=== PATIENT | male | born 1950 | race Caucasian/White ===

== ENCOUNTER → 2017-05-30 | Outpatient (CLI) | payer MEDICARE, OTHER ==
--- NOTE | 2017-05-30 10:34 | CARD ---
APPROVED REPORT EXAM: Two-dimensional and M-mode echocardiogram with Doppler and color Doppler. Other Information Quality : Good INDICATION Abnormal ECG A FIB 2D DIMENSIONS Left Atrium(2D)4.7 (1.6-4.0cm)IVSd1.3 (0.7-1.1cm) Aortic Root(2D)3.5 (2.0-3.7cm)LVDd5.1 (3.9-5.9cm) LVOT Diameter2.2 (1.8-2.4cm)PWd1.2 (0.7-1.1cm) IVSs1.6 (0.8-1.2cm)LVDs3.7 (2.5-4.0cm) FS (%) 27.1 %PWs1.6 (0.8-1.2cm) SV65.8 mlLVEF(%)52.4 (>50%) Aortic Valve AoV Peak Galo.149.6cm/sAoV VTI27.9cm AO Peak GR.9.0mmHgLVOT Peak Galo.82.5cm/s LVOT VTI 17.36cmAO Mean GR.5mmHg DEVIN (VMAX)2.43fg9JHV (VTI)2.26cm2 Mitral Valve MV E Skzidjri14.9cm/sMV DECEL ZRJY606mw MV A Fylewvnk68.6cm/sMV WLX68jg E/A Ratio0.6MVA (PHT)3.00cm2 TDI E/Lateral E'7.2E/Medial E'7.5 Tricuspid Valve RAP ENBNCYHP5ofHcXR Peak Gr.16mmHg FELD93hqCg Pulmonary Vein S1 Cctlifis42.7cm/sD2 Ziwftakx68.5cm/s LEFT VENTRICLE The left ventricle is normal size. There is borderline to mild concentric left ventricular hypertroph y. Left ventricle systolic function is normal. The Ejection Fraction is 55-60%. There is normal LV se gmental wall motion. Transmitral Doppler flow pattern is Grade I-abnormal relaxation pattern. RIGHT VENTRICLE The right ventricle is normal size. The right ventricular systolic function is normal. ATRIA The left atrium is mild to moderately dilated. The right atrium size is normal. The interatrial septu m is intact with no evidence for an atrial septal defect or patent foramen ovale as noted on 2-D or D oppler imaging. AORTIC VALVE The aortic valve is calcified but opens well. Doppler and Color Flow revealed mild to moderate aortic regurgitation. There is no significant aortic valvular stenosis. MITRAL VALVE The mitral valve is mildly thickened. There is no evidence of mitral valve prolapse. There is no mitr al valve stenosis. Doppler and Color-flow revealed trace mitral regurgitation. TRICUSPID VALVE The tricuspid valve is normal in structure and function. Doppler and Color Flow revealed trace to mil d tricuspid regurgitation. There is no pulmonary hypertension. The PA pressure was estimated at 19 mm Hg. There is no tricuspid valve stenosis. PULMONIC VALVE The pulmonary valve is normal in structure and function. Doppler and Color Flow revealed mild pulmoni c valvular regurgitation. There is no pulmonic valvular stenosis. GREAT VESSELS The aortic root is normal in size. The ascending aorta is normal in size. The IVC is normal in size a nd collapses >50% with inspiration. PERICARDIAL EFFUSION There is no pleural effusion. There is no evidence of significant pericardial effusion. Critical Notification Critical Value: No <Conclusion> Left ventricle systolic function is normal. The Ejection Fraction is 55-60%. There is normal LV segmental wall motion. Doppler and Color Flow revealed moderate aortic regurgitation.
== END | disposition home or self-care (01) ==
LOC: ECHO 08:29
PROVIDERS: ATTEND Internal Medicine Cardiovascular Disease
DX: I48.91 Unspecified atrial fibrillation (principal); I35.1 Nonrheumatic aortic (valve) insufficiency; I37.1 Nonrheumatic pulmonary valve insufficiency; R94.31 Abnormal electrocardiogram [ECG] [EKG]
CPT/HCPCS: 93306

== ENCOUNTER → 2017-07-23 | Outpatient (CLI) | payer MEDICARE, OTHER ==
--- NOTE | 2017-07-23 13:54 | KCIC ---
KNEE RIGHT 3V Clinical Indication: Right anterior knee pain. Locks up on and off x2 years. Surgery 1980. Comparison: None. Findings: No acute fracture. There is severe medial compartment narrowing. There is lateral meniscus chondrocalcinosis. There is surgical hardware of ACL repair. Tricompartmental marginal osteophytes. There is no significant joint effusion. Patella in anatomic position. There may be mild infrapatellar soft tissue swelling. Arterial calcifications. IMPRESSION: 1. Severe medial compartment degenerative arthropathy. 2. Lateral meniscus chondrocalcinosis. 3. Prior ACL repair. Electronically signed by: Jovanny Proctor MD (07/23/2017 1:50 PM) [id number]
== END | disposition home or self-care (01) ==
LOC: KCIC 11:00
PROVIDERS: ATTEND Family Medicine
DX: M11.261 Other chondrocalcinosis, right knee (principal); M12.861 Other specific arthropathies, not elsewhere classified, right knee
CPT/HCPCS: 73562

== ENCOUNTER → 2018-01-28 | Outpatient (CLI) | payer MEDICARE, OTHER ==
[~2018-01-28] MED LIST: LIDOCAINE 2%/EPI 1:100,000 20 ML VIAL.
[2018-01-28] MEDS: LIDOCAINE 2%/EPI 1:100,000 20 ML VIAL. IJ (11:11)
== END | disposition home or self-care (01) ==
LOC: CCL 06:17
DX: Z45.09 Encounter for adjustment and management of other cardiac device (principal); Z88.5 Allergy status to narcotic agent; I42.9 Cardiomyopathy, unspecified; I10 Essential (primary) hypertension; K21.9 Gastro-esophageal reflux disease without esophagitis; N40.0 Benign prostatic hyperplasia without lower urinary tract symptoms; Z98.1 Arthrodesis status; Z98.890 Other specified postprocedural states
CPT/HCPCS: 33284; J3490

== ENCOUNTER → 2018-11-10 | Outpatient (CLI) | payer MEDICARE, OTHER ==
[2018-01-28 07:36] VITALS: BP 128/83
[~2018-11-10] MED LIST changes: +AMLO5TAB10 PO; +ASPI81TA50 PO; +CELE200C PO; +CHOL2000 PO; +ESOM20CA PO; +GLUC1TAB44 PO; -LIDOCAINE 2%/EPI 1:100,000 20 ML VIAL.; +MELO15TA23 PO; +NAPR1TAB25 PO; +TADA5TAB PO; +TRAM50TA PO
--- NOTE | 2018-11-10 17:10 | KCIC ---
MR of the right knee HISTORY: Right knee pain anteriorly, pain for over 30 years. Worsening pain for the last 6 months. History of prior surgery. TECHNIQUE: Routine multiplanar sequences are obtained. FINDINGS: The medial meniscus is very small and blunted particularly at the posterior horn, compatible with a tear unless the patient has had prior meniscectomy. The lateral meniscus anterior horn is irregular with some increased signal, but no definite lateral meniscal tear. Anterior cruciate ligament has been reconstructed and appears intact. Posterior cruciate ligament is intact. Medial collateral ligament demonstrates proximal thickening or scarring without acute tear. Iliotibial band unremarkable. Fibular collateral ligament, biceps femoris tendon and popliteus tendon are intact. Extensor mechanism is intact. Small joint effusion. No evidence of osteochondral loose body. Tricompartmental primary osteoarthritis. Severe cartilage loss at the weightbearing medial joint compartment. Moderate chondromalacia at the lateral joint. Subchondral osteophyte at the weightbearing lateral femoral condyle. Severe patellofemoral joint degenerative change with severe chondral loss particularly at the femoral trochlea. No acute fracture. No aggressive bone destruction. Postsurgical artifact at the distal femur. Mild subcutaneous edema along the lateral knee. IMPRESSION: 1. Severe primary osteoarthritis. 2. Abnormal medial meniscus compatible with a tear, although prior meniscectomy could contribute to this appearance. Electronically signed by: Joseph Healy MD (11/10/2018 5:07 PM) [facility]
== END | disposition home or self-care (01) ==
LOC: KCIC MRI 16:02
PROVIDERS: ATTEND Orthopaedic Surgery Sports Medicine
DX: M17.11 Unilateral primary osteoarthritis, right knee (principal); M94.261 Chondromalacia, right knee
CPT/HCPCS: 73721

== ENCOUNTER → 2018-12-09 | Outpatient (CLI) | payer MEDICARE, OTHER ==
[2018-01-28 07:36] VITALS: BP 128/83
--- NOTE | 2018-12-09 14:23 | RAD ---
Examination: MRI of the right knee using Castillo & Nephew protocol HISTORY: History of osteoarthritis right knee COMPARISON: 11/10/2018 TECHNIQUE: MR imaging of the right knee was performed using Castillo & Nephew protocol. FINDINGS: Limited examination as this was performed per Castillo & Nephew protocol. Reconstructed anterior cruciate ligament appears intact. The posterior cruciate ligament appears intact. There is attenuated appearance of the body and posterior horn of the medial meniscus could be a tear or prior surgery similar to prior exam. Small knee joint effusion. Severe joint space loss identified in the medial, lateral, patellofemoral compartments. Impression: 1. Severe tricompartmental degenerative changes knee joint. Electronically signed by: Ayo Murguia MD (12/09/2018 2:20 PM) [facility]
--- NOTE | 2018-12-10 08:34 | RAD ---
Right lower extremity bone length study, 12/09/2018: HISTORY: Right knee osteoarthritis, surgical planning AP views of the right femur and lower leg were obtained with markers placed on the skin surface laterally to facilitate preoperative bone length measurements. There is moderate to severe degenerative change at the right knee joint with chondrocalcinosis. A surgical screw and macrina are present in the distal femur laterally. There is mild degenerative change at the right ankle. This limited exam is otherwise unremarkable. Electronically signed by: Gareth Bishop MD (12/10/2018 8:30 AM) [facility]
== END | disposition home or self-care (01) ==
LOC: RAD 13:04
PROVIDERS: ATTEND Orthopaedic Surgery Sports Medicine
DX: M17.11 Unilateral primary osteoarthritis, right knee (principal); M11.261 Other chondrocalcinosis, right knee
CPT/HCPCS: 73721; 77073

== ENCOUNTER → 2019-01-06 | Outpatient (CLI) | payer MEDICARE, OTHER ==
[2018-01-28 07:36] VITALS: BP 128/83
[2019-01-06 09:24] LABS: BASO % 0 % (0-3); EOS # 0.1 x10^3/uL (0.0-0.7); EOS % 2 % (0-3); HEMATOCRIT 43.1 % (39.0-53.0); LYMPH # 0.7 x10^3/uL (1.0-4.8); LYMPH % 15 % (24-48); MEAN CORPUSCULAR HEMOGLOBIN 33 pg (25-35); MEAN CORPUSCULAR HGB CONC 35 g/dL (31-37); MEAN CORPUSCULAR VOLUME 95 fL (79-100); MONO # 0.4 x10^3/uL (0.0-1.1); MONO % 8 % (0-9); NEUT # 3.7 x10^3uL (1.8-7.7); NEUT % 74 % (31-73); PLATELET COUNT 136 x10^3/uL (140-400); RED BLOOD COUNT 4.53 x10^6/uL (4.30-5.70); RED CELL DISTRIBUTION WIDTH 13.3 % (11.5-14.5)
[2019-01-06 09:32] LABS: BILIRUBIN,URINE NEGATIVE (NEG); CLARITY,URINE CLEAR; COLOR,URINE YELLOW; NITRITE,URINE NEGATIVE (NEG); PROTEIN,URINE NEGATIVE (NEG-TRACE); UROBILINOGEN,URINE 0.2 mg/dL (0.2 mg/dL)
[2019-01-06 09:40] LABS: PROTHROMBIN TIME PATIENT 12.6 SEC (11.7-14.0)
[2019-01-06 09:41] LABS: CALCIUM 9.2 mg/dL (8.5-10.1); GFR 74.8; POTASSIUM 4.1 mmol/L (3.5-5.1)
[2019-01-06 09:45] LABS: BACTERIA,URINE 0 /HPF (0-FEW); RBC,URINE 0 /HPF (0-2); WBC,URINE OCC /HPF (0-4)
--- NOTE | 2019-01-06 13:00 | EKG ---
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
--- NOTE | 2019-01-06 16:52 | RAD ---
Chest, 2 views, 01/06/2019: HISTORY: Preop evaluation for knee surgery The heart size and pulmonary vascularity are normal. There is tortuosity of the thoracic aorta. No pulmonary infiltrate is seen. There is no evidence of pleural fluid. Surgical implants are noted in the lower cervical spine. IMPRESSION: No acute cardiopulmonary abnormality is detected. Electronically signed by: Gareth Bishop MD (01/06/2019 4:49 PM) [facility]
== END | disposition home or self-care (01) ==
LOC: SURGPAT 13:12
PROVIDERS: ATTEND Orthopaedic Surgery Sports Medicine
DX: Z01.818 Encounter for other preprocedural examination (principal); M17.11 Unilateral primary osteoarthritis, right knee; I48.91 Unspecified atrial fibrillation
CPT/HCPCS: 36415; 71046; 80048; 81001; 82040; 82306; 85025; 85610; 85651; 85730; 87641; 93005

== ENCOUNTER → 2019-01-13 | Outpatient (CLI) | payer MEDICARE, OTHER ==
[2018-01-28 07:36] VITALS: BP 128/83
--- NOTE | 2019-01-13 11:09 | CARD ---
MR#: [id number] Date of Study: 01/13/2019 Ordering Physician: BAR NATH, Referring Physician: BAR NATH Tech: Cece Martinez RDCS APPROVED REPORT EXAM: Two-dimensional and M-mode echocardiogram with Doppler and color Doppler. Other Information Quality : AverageHR: 66bpm Rhythm : NSR INDICATION Atrial Fibrillation 2D DIMENSIONS RVDd3.8 (2.9-3.5cm)Left Atrium(2D)4.3 (1.6-4.0cm) IVSd1.5 (0.7-1.1cm)Aortic Root(2D)3.5 (2.0-3.7cm) LVDd4.4 (3.9-5.9cm)LVOT Diameter2.4 (1.8-2.4cm) PWd1.1 (0.7-1.1cm)LVDs2.8 (2.5-4.0cm) FS (%) 35.9 %SV57.5 ml LVEF(%)65.6 (>50%) M-Mode DIMENSIONS Left Atrium(MM)4.50 (2.5-4.0cm)Aortic Root3.36 (2.2-3.7cm) Aortic Valve AoV Peak Galo.132.6cm/sAoV VTI25.8cm AO Peak GR.7.0mmHgLVOT Peak Galo.74.8cm/s AO Mean GR.3mmHgAVA (VMAX)2.56cm2 DEVIN (VTI)2.68hv5RC P 1/2 Gnmn273mb Mitral Valve MV E Hqzlbiew34.6cm/sMV DECEL ODYY685nr MV A Vcvtkvir97.4cm/sE/A Ratio0.6 Pulmonary Valve PV Peak Eyhfbikw479.8cm/s LEFT VENTRICLE The left ventricle is normal size. There is mild concentric left ventricular hypertrophy. The left ve ntricular systolic function is normal and the ejection fraction is within normal range. The Ejection Fraction is 60-65%. There is normal LV segmental wall motion. Transmitral Doppler flow pattern is Gra de I-abnormal relaxation pattern. RIGHT VENTRICLE The right ventricle is normal size. There is normal right ventricular wall thickness. The right ventr icular systolic function is normal. ATRIA The left atrium is mildly dilated. The right atrium size is normal. The interatrial septum is intact with no evidence for an atrial septal defect or patent foramen ovale as noted on 2-D or Doppler imagi ng. AORTIC VALVE The aortic valve is normal in structure and function. The aortic valve is trileaflet. Doppler and Col or Flow revealed mild aortic regurgitation. There is no significant aortic valvular stenosis. There i s no aortic valvular vegetation. MITRAL VALVE The mitral valve is normal in structure and function. There is no evidence of mitral valve prolapse. There is no mitral valve stenosis. Doppler and Color-flow revealed mild mitral regurgitation. TRICUSPID VALVE The tricuspid valve is normal in structure and function. Doppler and Color Flow revealed no tricuspid valve regurgitation noted. There is no tricuspid valve prolapse or vegetation. There is no tricuspid valve stenosis. PULMONIC VALVE The pulmonary valve is normal in structure and function. Doppler and Color Flow revealed mild pulmoni c valvular regurgitation. There is no pulmonic valvular stenosis. GREAT VESSELS The aortic root is normal in size at 3.5cm. The ascending aorta is Mildly dilated at 4.1cm. The IVC i s normal in size and collapses >50% with inspiration. PERICARDIAL EFFUSION There is no evidence of significant pericardial effusion. Critical Notification Critical Value: No <Conclusion> The left ventricular systolic function is normal and the ejection fraction is within normal range. Th e Ejection Fraction is 60-65%. There is normal LV segmental wall motion. Doppler and Color Flow revealed mild aortic regurgitation. The ascending aorta is Mildly dilated at 4.1cm. Signed by : Marshall Brown, Electronically Approved : 01/13/2019 11:08:58
== END | disposition home or self-care (01) ==
LOC: ECHO 09:49
PROVIDERS: ATTEND Internal Medicine Cardiovascular Disease
DX: I08.8 Other rheumatic multiple valve diseases (principal); I48.91 Unspecified atrial fibrillation
CPT/HCPCS: 93306

== ENCOUNTER → 2019-01-23 | Outpatient (CLI) | payer MEDICARE, OTHER ==
[2019-01-21 05:33] VITALS: BP 126/79
[~2019-01-23] MED LIST changes: +OXYC1TAB15 PO; +WARF-78 PO
== END | disposition home or self-care (01) ==
LOC: PT 15:09
PROVIDERS: ATTEND Orthopaedic Surgery Sports Medicine
DX: Z47.1 Aftercare following joint replacement surgery (principal); M25.661 Stiffness of right knee, not elsewhere classified; R26.9 Unspecified abnormalities of gait and mobility; R26.81 Unsteadiness on feet; M62.81 Muscle weakness (generalized); Z96.651 Presence of right artificial knee joint
CPT/HCPCS: 97110

== ENCOUNTER → 2019-06-22 | Outpatient (CLI) | payer MEDICARE, OTHER ==
[~2019-06-22] MED LIST changes: +CONTRAST GIVEN. MC PRN; +IOHEXOL 180 MG/ML 10 ML VIAL. IJ ONE; +LIDOCAINE WITH 8.4% SOD BICARB 3 ML DISP.SYRIN. INJ ONE
[2019-06-22 09:39] VITALS: BP 153/72
[2019-06-22 10:30] VITALS: BP 153/90
--- NOTE | 2019-06-22 12:06 | RAD ---
Examination: CT LUMBAR SPINE W/CONTRAST History: Left foot drop Comparison/Correlation: 10/05/2015 lumbar spine MRI without contrast Findings: Axial images of the lumbar spine were obtained following intrathecal administration of contrast for purposes of lumbar spine CT myelographic exam. T11-T12: Unremarkable T12-L1: Unremarkable L1-2: Unremarkable L2-3: Mild disc space narrowing and slight effacement of the thecal sac. No nerve root effacement. L3-4: L3 vertebral body hemangioma is present measuring up to 1.9 cm diameter. Otherwise unremarkable. L4-5: Unremarkable Minimal anterolisthesis of L5 in relation to S1 by 0.5 cm present. Intervertebral disc spacer material noted at this level. L5-S1 rods and associated screws noted. No evidence of loosening. Bilateral L5 laminectomy noted. Small L5 vertebral body hemangioma is noted anteriorly. The thecal sac is symmetric. No definite nerve root effacement. No definite or significant spinal canal stenosis. Facet joint degenerative changes are mild. The visualized retroperitoneum is unremarkable. Impression: Postoperative changes at L5-S1. No nerve root effacement. Mild degenerative change. No suspicious process. Electronically signed by: Shahab Briseno MD (06/22/2019 12:03 PM) [facility]
--- NOTE | 2019-06-22 12:31 | RAD ---
Examination: MYELOGRAPHY LUMBOSACRAL History: Left foot drop Comparison/Correlation: None Findings: Risks and benefits of lumbar myelography were discussed with the patient and informed consent was obtained. Fluoroscopy was utilized for 2 minutes. Total of 15 images were acquired. The patient was placed in the [place] position. Preliminary imaging was performed to determine site of needle placement. Cleansing with Betadine wasn't performed at the L4-5 and L5-S1 levels. Sterile drape was placed. 5 cc 1 percent lidocaine was administered at the L5-S1 level. 20-gauge spinal needle was successfully introduced into the thecal sac after approximately 4 passes. Approximately 8 cc of slightly bloody CSF was withdrawn and discarded. Subsequently, 16 cc Omnipaque 180 was introduced into the thecal sac. Contrast is identified to extend to the mid thoracic spine level. Impression: Successful placement of contrast into the thecal sac or. No obstruction of flow of contrast within the thecal sac identified from the lumbar spine to the upper to mid thoracic spine level. Electronically signed by: Shahab Briseno MD (06/22/2019 12:28 PM) [facility]
== END ==
LOC: RAD 07:17
PROVIDERS: ATTEND Neurological Surgery
DX: M21.372 Foot drop, left foot (principal)
CPT/HCPCS: 62304; 72132; Q9965; 72265

== ENCOUNTER → 2020-01-21 | Outpatient (CLI) | payer MEDICARE, OTHER ==
[2019-06-22 10:30] VITALS: BP 153/90
[~2020-01-21] MED LIST changes: -CONTRAST GIVEN. MC PRN; -IOHEXOL 180 MG/ML 10 ML VIAL. IJ ONE; -LIDOCAINE WITH 8.4% SOD BICARB 3 ML DISP.SYRIN. INJ ONE; +REGADENOSON 0.4 MG/5 ML DISP.SYRIN. IV ONE; -WARF-78 PO; +WARF5TAB2 PO
--- NOTE | 2020-01-21 13:09 | RAD ---
MR#: [id number] Date of Study: 01/21/2020 Ordering Physician: BAR NATH, Referring Physician: SHERINE ORTA Tech: RT Randall (R) (N) APPROVED REPORT Test Type: Pharmacological Stress Nurse/Tech: Birdie Wood/ELISABETH Test Indications: A-Fib Cardiac History: 2 Oblations Medications: See EHR Resting Heart Rate: 68 bpm Resting Blood Pressure: 139/76mmHg Pretest Chest Pain: None Pharm. Details Pharmacologic stress testing was performed using 0.4mg per 5ml of regadenoson given intravenously ove r 7-10 seconds. There waswas no low-level exercise performed along with the infusion POST EXERCISE Reason for Termination: Infusion complete Max HR: 83 bpm Max Blood Pressure: 143/75mmHg Blood Pressure response to exercise: Normal blood pressure response during stress. Heart Rate response to exercise: Noormal Chest Pain: No. Arrhythmia: No. ST Change: No. INTERPRETATION Stress EKG Conclusion: The resting EKG shows a normal sinus rhythm. The stress EKG shows no significant changes from baseline. No EKG evidence of stress-induced ischemia. Rest: Stress: Viability: Radiopharm.Tc99m YwzvmftwvXz70a Sestamibi Dose10.5mCi 31mCi Duration 13.5min. 13.5min. Img Date 01/21/2020 01/21/2020 Inj-Img Caxv15ixu. 60min. Rest Admin Site:IV - Right AntecubitalAdministrator:Alesia Wolfe RT (R)(N) Stress Admin Site: IV - Right AntecubitalAdministrator: COLIN Gutiérrez, ARRT (R)(N) STRESS DATA End Diast. Vol.122.0mlLVEDV index BSA53.0ml End Syst. Vol.37.0mlLVESV index BSA16.0ml Myocardial Zcme095.0gEject. Fynmxxxb82.0% Stress Scores Regional WT0.00Summed WT1.00 Regional WM0.00Summed WM2.00 LV Perfusion The stress scans showed no significant defects. The rest scans showed no significant defects. Nuclear imaging shows no reversible ischemia or infarct. Wall Motion Left ventricular systolic function is normal with an ejection fraction of 70% and a TID of 0.84. LV Perf. Quant 17 Seg. SSS0.00 17 Seg. SRS0.00 17 Seg. SDS0.00 Stress Defect Extent (% LAD)0.00Rest Defect Extent (% LAD)0.00Rev. Defect Extent (% LAD)0.00 Stress Defect Extent (% LCX) 0.00Rest Defect Extent (% LCX)0.00Rev. Defect Extent (% LCX)0.00 Stress Defect Extent (% RCA)0.00Rest Defect Extent (% RCA)0.00Rev. Defect Extent (% RCA)0.00 Stress Defect Extent (% ALEXANDER)0.00Rest Defect Extent (% ALEXANDER)0.00Rev. Defect Extent (% ALEXANDER)0.00 Conclusion 1. No EKG evidence of stress-induced ischemia. 2. Nuclear imaging shows no reversible ischemia or infarct. 3. Normal left ventricular systolic function with an ejection fraction of 70%. 4. Low risk Lexiscan nuclear stress test. Signed by : Sunil Watkins MD Electronically Approved : 01/21/2020 13:09:28
== END | disposition home or self-care (01) ==
LOC: NM 09:24
PROVIDERS: ATTEND Internal Medicine Cardiovascular Disease
DX: I48.91 Unspecified atrial fibrillation (principal)
CPT/HCPCS: 78452; 93017; A9500; J2785

== ENCOUNTER → 2020-07-12 | Outpatient (CLI) | payer MEDICARE, OTHER ==
[2019-06-22 10:30] VITALS: BP 153/90
[~2020-07-12] MED LIST changes: +AMLO-186 PO; -AMLO5TAB10 PO; -REGADENOSON 0.4 MG/5 ML DISP.SYRIN. IV ONE
--- NOTE | 2020-07-12 13:00 | CARD ---
MR#: [id number] Date of Study: 07/12/2020 Ordering Physician: BAR NATH, Referring Physician: BAR NATH, Tech: Gemini Arcos HEMANT APPROVED REPORT EXAM: Two-dimensional and M-mode echocardiogram with Doppler and color Doppler. Other Information Quality : GoodHR: 79bpm Rhythm : NSR INDICATION History of Afib, ablation x2. 2D DIMENSIONS RVDd3.9 (2.9-3.5cm)IVSd1.3 (0.7-1.1cm) Aortic Root(2D)4.1 (2.0-3.7cm)LVDd4.3 (3.9-5.9cm) LVOT Diameter2.2 (1.8-2.4cm)PWd1.0 (0.7-1.1cm) LVDs3.0 (2.5-4.0cm)FS (%) 31.3 % SV49.5 mlLVEF(%)59.4 (>50%) Aortic Valve AoV Peak Galo.115.4cm/Jose Manuel Peak GR.5.3mmHg LVOT Peak Galo.96.1cm/sAVA (VMAX)3.29cm2 Mitral Valve MV E Szzhjxwm97.1cm/sMV DECEL VAHV932bp MV A Vuutased80.4cm/sE/A Ratio0.6 MV A Wjbfgzbb923cm Pulmonary Valve PV Peak Qvjxdsvq28.9cm/s Tricuspid Valve TR P. Ccqqcjvc638po/sRAP BJLXLYSY4tfXz TR Peak Gr.85wxTzYWQS87mkRa Pulmonary Vein S1 Txkgbtsl72.4cm/sD2 Lhyslcag38.8cm/s PVa zlpqague047jqft LEFT VENTRICLE The left ventricle is normal size. Mild basal septal hypertrophy. Left ventricle systolic function is normal. The Ejection Fraction is 55-60%. There is normal LV segmental wall motion. Transmitral Doppl er flow pattern is Grade I-abnormal relaxation pattern. RIGHT VENTRICLE The right ventricle is normal size. The right ventricular systolic function is normal. ATRIA The left atrium is mildly dilated. The right atrium size is normal. The interatrial septum is intact with no evidence for an atrial septal defect or patent foramen ovale as noted on 2-D or Doppler imagi ng. AORTIC VALVE The aortic valve is normal in structure. Leaflets are mildly sclerotic. Mild aortic regurgitation. Th ere is no aortic valvular stenosis. MITRAL VALVE The mitral valve is normal in structure. Leaflets are mildly calcified. There is no mitral valve sten osis. Trace to mild mitral regurgitation. TRICUSPID VALVE The tricuspid valve is normal in structure and function. Trace tricuspid regurgitation. The PA pressu re was estimated at 25-30 mmHg. There is no tricuspid valve stenosis. PULMONIC VALVE The pulmonary valve is normal in structure and function. Mild pulmonic valvular regurgitation. There is no pulmonic valvular stenosis. GREAT VESSELS Ascending aorta is mildly dilated at 4.1cm. Ascending aorta is mildly dilated at 4.0cm. The IVC is no rmal in size and collapses >50% with inspiration. PERICARDIAL EFFUSION There is no evidence of significant pericardial effusion. Critical Notification Critical Value: No <Conclusion> Left ventricle systolic function is normal. The Ejection Fraction is 55-60%. There is normal LV segmental wall motion. Mild aortic regurgitation. Mild pulmonic valvular regurgitation. Ascending aorta is mildly dilated at 4.0cm. Signed by : Marshall Brown, Electronically Approved : 07/12/2020 12:59:39
== END ==
LOC: ECHO 10:16
PROVIDERS: ATTEND Internal Medicine Cardiovascular Disease
DX: I08.8 Other rheumatic multiple valve diseases (principal); I48.91 Unspecified atrial fibrillation
CPT/HCPCS: 93306

== ENCOUNTER → 2020-07-14 | Outpatient (CLI) | payer MEDICARE, OTHER ==
[2019-06-22 10:30] VITALS: BP 153/90
--- NOTE | 2020-07-14 10:46 | KCIC ---
MRI of the lumbar spine without contrast 07/14/2020 CLINICAL HISTORY: Low back pain which radiates down the left leg with left leg numbness. TECHNIQUE: Unenhanced T1-weighted and T2-weighted sagittal and axial and inversion recovery sagittal images of the lumbar spine were obtained. FINDINGS: Comparison is made to a CT lumbar myelogram dated 06/22/2019. Very mild S-shaped curvature of the thoracolumbar spine is seen. Mild anterolisthesis of L5 in relation to S1 is seen. The patient is post laminectomy and fusion using pedicle screws, stabilizing rods and bone graft material at L5-S1. Degenerative signal changes are seen involving all of the disks of the lumbar spine. Degenerative signal changes are seen within the marrow surrounding these discs. A 2.5 cm hemangioma is seen involving the L3 vertebral body. The conus medullaris is normal morphology, position, and signal characteristics. At the L1-2 disc space there is a mild generalized disc bulge. This is eccentric to the right. Degenerative changes are seen involving the facet joints bilaterally. There is mild ligamentum flavum hypertrophy bilaterally. There are small facet joint effusions. These findings do not result in significant central spinal canal or neural foraminal stenosis. At the L2-3 disc space there is a mild generalized disc bulge. Superimposed on this disc bulge is a focal central disc protrusion. This measures 2 mm in AP diameter. Degenerative changes are seen involving the facet joints bilaterally. There is mild ligamentum flavum hypertrophy bilaterally. There are small facet joint effusions bilaterally. These findings do not result in significant central spinal canal or neural foraminal stenosis. At the L3-4 disc space there is a mild generalized disc bulge. Degenerative changes are seen involving the facet joints bilaterally. There is mild ligamentum flavum hypertrophy bilaterally. These findings when combined do not result in significant central spinal canal or neural foraminal stenosis. At the L4-5 disc space there is a mild generalized disc bulge. Degenerative changes are seen involving the facet joints bilaterally. There is mild ligamentum flavum hypertrophy bilaterally. These findings when combined do not result in significant central spinal canal or neural foraminal stenosis. At the L5-S1 disc space, degenerative changes are seen involving the facet joints bilaterally. These findings do not result in significant central spinal canal or neural foraminal stenosis. IMPRESSION: 1. Post laminectomy and fusion at L5-S1. 2. The changes of degenerative disc disease are seen throughout the lumbar spine. These findings do not result in significant central spinal canal or neural foraminal stenosis. Electronically signed by: Nj Alberts MD (07/14/2020 10:42 AM) [id number]
== END ==
LOC: KCIC MRI 08:58
PROVIDERS: ATTEND Nurse Practitioner Gerontology
DX: M43.17 Spondylolisthesis, lumbosacral region (principal); M47.817 Spondylosis without myelopathy or radiculopathy, lumbosacral region; Z98.1 Arthrodesis status; M43.8X5 Other specified deforming dorsopathies, thoracolumbar region
CPT/HCPCS: 72148

== ENCOUNTER → 2020-07-22 | Outpatient (CLI) | payer MEDICARE, OTHER ==
[2019-06-22 10:30] VITALS: BP 153/90
[~2020-07-22] MED LIST changes: +AMLO-187 PO; +CYCL10TA2 PO; +GABA-585 PO; +IOHEXOL 180 MG/ML 10 ML VIAL. ONE; +NAPR220C4 PO; +OMEP20TA63 PO; +THIA100T57 PO; +methylPREDNISolone ACETATE 40 MG/ML VIAL. ONE; +methylPREDNISolone ACETATE 80 MG/ML VIAL. ONE
--- NOTE | 2020-07-22 13:16 | PDOC1 ---
INITIAL PAIN CONSULT DATE OF SERVICE: DOS: DATE: 07/22/20 TIME: 13:08 CHIEF COMPLAINT: Chief Complaint: Low back and left lower extremity pain HISTORY OF PRESENT ILLNESS: 70-year-old male presents history of pain low back left lower extremity for about 6 months without any specific injury or accident he is aware of he had a knee replacement on the right side and feels that he was walking awkwardly for several months after this and the pain began increasing in the back and the left lower extremity after this. Patient janeth has had multiple physical therapies and has done well with his right knee is walking better but still the pain is persistent in the low back left lower extremity. Patient did have a lumbar fusion at L5 about 10 years ago which did well at the time and the symptoms were similar at that time. Patient reports now the pain is in the low back rating the posterior gluteus posterior lateral thigh lateral anterior thigh anterior medial thigh and into the left medial ankle and foot. Patient describes that the pain as constant and sharp stabbing throbbing shooting radiating with numbness and tingling in the foot and the leg on the left side cramping in the back as well. Patient reports it wakes him from sleep about 2-3 times a night does not affect his bowel bladder control but does affect his body walk and is using a cane and he has that in his right hand today. Patient has had physical therapy Susana this year as well as doing exercises on his own which were helpful at the time but not long-lasting patient has tried prednisone pack which helped significantly initially but did not last also cyclobenzaprine and gabapentin which both do decrease the pain a small amount as well patient rates his disability rating 0-10 10 being the worst is an 8 with family home responsibilities 10 with recreational activities 9 with social activity occupation 10 with sexual behavior 7 with self-care 8 with life support activities especially sleeping. Patient have a CT myelogram of the lumbar spine showing postoperative changes L5-S1 without nerve root effacement mild degenerative change no suspicious processes. Patient reports no loss of motor function but significant fatigability the left lower extremity with ambulation standing and walking better with sitting or laying down but again awaken him from sleep as well. PAST MEDICAL HISTORY: PMH: Arthritis, atrial fibrillation status post ablation, melanoma history PREVIOUS SURGERIES: Past Surgical Hx: Right knee replacement 2018, lumbar fusion 2009, cervical fusion 2007, left rotator cuff repair 1999, right ankle fracture 2011, bilateral cataract extract ion 2019, cardiac ablation 2011 and 2009, 2008 sinus septoplasty, myeloma excision CURRENT MEDICATIONS: Current Meds: Active Scripts Medications Dose Route/Sig Max Daily Dose Days Date Category Amlodipine Besylate 10 Mg Tablet 10 Mg PO DAILY 07/22/20 Reported Aleve (Naproxen Sodium) 220 Mg Capsule 220 Mg PO BID 07/22/20 Reported Prilosec Otc (Omeprazole Magnesium) 20 Mg Tablet.dr 1 Tab PO DAILY 30 07/22/20 Reported Vitamin B-1 (Thiamine Hcl) 100 Mg Tablet 250 Mg PO DAILY 07/22/20 Reported Gabapentin (Gabapentin) 100 Mg Capsule 100 Mg PO TID 07/22/20 Reported Cyclobenzaprine Hcl 10 Mg Tablet 1 Tab PO DAILY 07/22/20 Reported Vitamin D (Cholecalciferol (Vitamin D3)) 2,000 Unit Capsule 5,000 Unit PO DAILY 01/09/19 Reported ALLERGIES; Allergies: Coded Allergies: codeine (Verified Allergy, Intermediate, Hives, 01/19/19) Patient tolerates Morphine without a problem FAMILY HISTORY: Family Hx: No major medical problems or conditions he is aware of SOCIAL HISTORY: Social Hx: Patient does not lacey alcohol does not smoke citing illegal illicit recreational drugs is lives with his spouse lives locally in [facility] and is currently retired REVIEW OF SYSTEMS: ROS: Positive for those items mentioned in history of present illness, all systems are reviewed, otherwise negative, is complete full and well-documented on patient's chart PHYSICAL EXAM: VS: Blood pressure is 141/97 pulse 85 respirations 20 temperature 97.9 F height 6 foot weight 263 pounds PE: PHYSICAL EXAMINATION: GENERAL: The patient is awake, alert, oriented, appropriate, very pleasant demeanor HEENT: Shows normocephalic, atraumatic. Extraocular movements are intact and symmetrical. Oral cavity: Mucous membranes moist and pink. Dentition is intact. NECK: Shows anterior throat supple without palpable lymphadenopathy noted. Swallow reflex symmetrical. CHEST: Shows normal on inspection. Breath sounds are clear bilaterally, no rales rhonchi or wheezes auscultated. HEART: Shows S1, S2 clear. No murmurs auscultated. ABDOMEN: Soft, nontender, nondistended, obese. No palpable organomegaly is noted. No rebound or guarding demonstrated. BACK: Shows spine grossly in the midline. Normal-appearing cervical lordotic curvature. There is slightly increased thoracic kyphosis, some minor flattening of the lumbar lordotic curvature with well-healed midline surgical scar noted. Lumbar paraspinous muscles show symmetrical on inspection, on palpation shows some moderate tenderness diffusely throughout the upper, middle and lower distribution of the paraspinous muscles bilaterally, but without specific trigger points, without radiation of pain. The patient has good rotational motion of the lumbar spine, both laterally as well as extension and flexion wi thout significant difficulty. No tenderness over the spinous processes, sacrum or sacroiliac regions. EXTREMITIES: Lower extremities show deep tendon reflexes 1+ in the patellar and tendo calcaneus tendons. Motor exam is 5 on a scale of 5 with right dors iflexion, extension, quadriceps and hamstring flexion and 4/5 on the left. Peripheral pulses are 1+ posterior tibial. No peripheral edema is noted bilaterally. Lower extremities are warm and dry to touch, equal in color and appearance. Straight leg raise noted to be negative bilaterally. Gaenslen's and Gerardo's maneuvers are negative bilaterally as well. The patient is able to stand, stand on his toes without significant difficulty or loss of balance does have a significant favoring gait favoring the left lower extremity walking with a cane in his right hand. SKIN: Shows warm and dry, good turgor. No edema. No sores, rashes or bruising throughout. IMPRESSION: Impression: 70-year-old male with 6-month history increasing pain low back left lower extremity radicular fashion CT myelogram as noted Arthritis History of atrial fibrillation History of melanoma Plan: Options were discussed with the patient including conservative medical management physical therapies and interventional techniques. Patient elects interventional techniques. We discussed a lumbar epidural steroid injection using descriptions as well as anatomical models described procedure. Risks were discussed including but not limited to: Bleeding, infection, possibility of epidural hematoma and subsequent neurological compromise, dural puncture, headaches, spinal cord and/or nerve damage, side effects of steroid medication, and poor results regarding pain control. Patient understands wished to proceed. Patient will return to clinic in approximate 2 weeks for follow-up, was counseled as to return appointment activity level, and side effects to be aware of. Procedure is lumbar epidural steroid injection under local anesthetic using sterile prep and drape at the L4-5 level using C-arm fluoroscopic guidance in both AP and lateral views medications injected is 120 mg Depo-Medrol + 10 mL preservative-free normal saline and 2 mL contrast- condition at discharge is stable patient tolerated procedure well had no complications. YANN ANN MD Jul 22, 2020 13:16
== END | disposition home or self-care (01) ==
LOC: PNCL 09:18
PROVIDERS: ATTEND Anesthesiology
DX: M54.5 Low back pain (principal); M79.662 Pain in left lower leg; M19.90 Unspecified osteoarthritis, unspecified site; I48.91 Unspecified atrial fibrillation; Z85.820 Personal history of malignant melanoma of skin; Z96.651 Presence of right artificial knee joint; Z79.899 Other long term (current) drug therapy; Z88.6 Allergy status to analgesic agent
CPT/HCPCS: 62323; J1030; J1040; Q9965

== ENCOUNTER → 2020-08-09 | Outpatient (CLI) | payer MEDICARE, OTHER ==
[2019-06-22 10:30] VITALS: BP 153/90
--- NOTE | 2020-08-09 11:35 | PDOC ---
Progress Note - Pain Clinic Date of Service: DOS: DATE: 08/09/20 TIME: 11:31 Diagnosis: Dx: Lumbar radiculopathy with lumbar degenerative disc disease and lumbar postlaminectomy syndrome History or Present Illness: HPI: 70-year-old male returns follow-up status post lumbar epidural steroid injection x1. Patient with a 50% improvement for the first week pain returning in the low back and left lower extremity mostly the posterior gluteus posterior lateral thigh lateral anterior thigh on the left side patient reports for a few days he had almost no pain overall about 50% improved his pain is now returning. Patient rates a 10 on a scale of 10 is worse over the past week 8 on average 6 its least and is a 7 today. Patient scribes pain is sharp and shooting across low back and left lower extremity cramping stabbing pain in the back itself radiating worse with walking can be severe with standing for prolonged periods better with sitting or laying down does not generally awaken from sleep and generalized not bother him while he sitting patient reports no new motor or sensory deficits no new bowel or bladder incontinence or other complaints. Physical Exam: VS: Blood pressure is 174/117 pulse 78 respirations 18 temperature 98.3 F height is 6 foot weight is 265 pounds PE: PHYSICAL EXAMINATION: GENERAL: The patient is awake, alert, oriented, appropriate, very pleasant demeanor HEENT: Shows normocephalic, atraumatic. Extraocular movements are intact and symmetrical. Oral cavity: Mucous membranes moist and pink. NECK: Shows anterior throat supple without palpable lymphadenopathy noted. Swallow reflex symmetrical. CHEST: Shows normal on inspection. Breath sounds are clear bilaterally. HEART: Shows S1, S2 clear. No murmurs auscultated. ABDOMEN: Soft, nontender, nondistended, obese. No palpable organomegaly is noted. BACK: Shows spine grossly in the midline. Normal-appearing cervical lordotic curvature. There is slightly increased thoracic kyphosis, some minor flattening of the lumbar lordotic curvature. Well-healed surgical scar is again noted. Lumbar paraspinous muscles show symmetrical on inspection, on palpation shows some moderate tenderness diffusely throughout the upper, middle and lower distribution of the paraspinous muscles without specific trigger points, without radiation of pain. The patient has good rotational motion of the lumbar spine, both laterally as well as extension and flexion without significant difficulty. No tenderness over the spinous processes, sacrum or sacroiliac regions. EXTREMITIES: Lower extremities show deep tendon reflexes 1+ in the patellar and tendo calcaneus tendons. Motor exam is 5 on a scale of 5 with right dorsiflexion, extension, quadriceps and hamstring flexion and 4/5 on the left. Peripheral pulses are 1 posterior tibial. No peripheral edema is noted bilaterally. Lower extremities are warm and dry to touch, equal in color and appearance. SKIN: Shows warm and dry, good turgor. No edema. No sores, rashes or bruising throughout. Procedure: Procedure: Options discussed with the patient. Patient will chart reviews her current medication regimen updated current review of systems updated today as well. We will proceed with a second in the series lumbar epidural straight injection today with fluoroscopic guidance. Risks were discussed including but not limited to: Bleeding, infection, possibility of epidural hematoma and subsequent neurological compromise, dural puncture, headaches, spinal cord and/or nerve damage, side effects of steroid medication, and poor results regarding pain control. Patient understands wished to proceed. Patient will return to clinic in approximate 2 weeks for follow-up, was counseled as to return appointment activity level and side effects to be aware of. Medication Injected: Med Injected: Procedure is lumbar epidural steroid injection under local anesthetic using sterile prep and drape at the L4-5 level using C-arm fluoroscopic guidance in both AP and lateral views medications injected is 120 mg Depo-Medrol + 10 mL preservative-free normal saline and 2 mL contrast- condition at discharge is stable patient tolerated procedure well had no complications. Condition at Discharge: Condition at Discharge: Condition at discharge stable, patient tolerated procedure well and had no complications. YANN ANN MD Aug 09, 2020 11:34
== END | disposition home or self-care (01) ==
LOC: PNCL 10:48
PROVIDERS: ATTEND Anesthesiology
DX: M51.16 Intervertebral disc disorders with radiculopathy, lumbar region (principal); M96.1 Postlaminectomy syndrome, not elsewhere classified; Z98.890 Other specified postprocedural states; Z88.6 Allergy status to analgesic agent
CPT/HCPCS: 62323; J1030; J1040; Q9965

== ENCOUNTER → 2020-08-30 | Outpatient (CLI) | payer MEDICARE, OTHER ==
[2019-06-22 10:30] VITALS: BP 153/90
--- NOTE | 2020-08-30 10:52 | PDOC ---
Progress Note - Pain Clinic Date of Service: DOS: DATE: 08/30/20 TIME: 10:50 Diagnosis: Dx: Lumbar radiculopathy with lumbar degenerative disc disease and lumbar postlaminectomy syndrome History or Present Illness: HPI: 70-year-old male returns follow-up status post lumbar epidural steroid injection x2. Patient reports about 30% improvement overall in the low back and left hip and leg patient reports she has been increase his activity to greater ease and comfort and is sleeping much better at night than when he started. Patient reports is a sharp pain that shooting in the low back right posterior gluteus posterior thigh lateral thigh anterior thigh medial thigh which is becoming more severe radiating and constant patient reports is burning and stinging at times as well as aching and cramping across the low back patient reports pain is a 10 on scale 10 is worse over the past week 7 on average for its least and is a 7 today. Patient reports no new motor or sensory deficits no new bowel or bladder incontinence or other complaints except increase his mobility and able to cross his left leg to his right which he was unable to do prior to his treatment. Physical Exam: VS: Blood pressure is 140/93 pulse 93 respirations 18 temperature 98.4 F height is 6 feet 2 inches weight is 262 pounds PE: PHYSICAL EXAMINATION: GENERAL: The patient is awake, alert, oriented, appropriate, very pleasant demeanor HEENT: Shows normocephalic, atraumatic. Extraocular movements are intact and sy mmetrical. NECK: Shows anterior throat supple without palpable lymphadenopathy noted. Swallow reflex symmetrical. CHEST: Shows normal on inspection. Breath sounds are clear bilaterally. HEART: Shows S1, S2 clear. No murmurs auscultated. ABDOMEN: Soft, nontender, nondistended, obese. No palpable organomegaly is noted. No rebound or guarding demonstrated. BACK: Shows spine grossly in the midline. Normal-appearing cervical lordotic curvature. There is slightly increased thoracic kyphosis, some minor flattening of the lumbar lordotic curvature. Lumbar paraspinous muscles show symmetrical on inspection, on palpation shows some moderate tenderness diffusely throughout the upper, middle and lower distribution of the paraspinous muscles, but without specific trigger points, without radiation of pain. The patient has good rotational motion of the lumbar spine, both laterally as well as extension and flexion without significant difficulty. No tenderness over the spinous processes, sacrum or sacroiliac regions. EXTREMITIES: Lower extremities show deep tendon reflexes 1+ in the patellar and tendo calcaneus tendons. Motor exam is 5 on a scale of 5 with right dorsiflexion, extension, quadriceps and hamstring flexion and 4/5 on the left. Peripheral pulses are 1+ posterior tibial. No peripheral edema is noted bilaterally. Lower extremities are warm and dry to touch, equal in color and appearance. SKIN: Shows warm and dry, good turgor. No edema. No sores, rashes or bruising throughout. Procedure: Procedure: Options were discussed with the patient. Patient's old chart was reviewed his his current medication regimen updated current review of systems updated today as well. We will proceed with a third in the series lumbar epidural steroid injection today with fluoroscopic guidance. Risks were discussed including but not limited to: Bleeding, infection, possibility of epidural hematoma and subsequent neurological compromise, dural puncture, headaches, spinal cord and/or nerve damage, side effects of steroid medication, and poor results regarding pain control. Patient understands wished to proceed. Patient will return to clinic in approximate 2 weeks for follow-up, was counseled as return appointment activity level and side effects to be aware of. We will also order physical therapy for the patient as he has done well with this in the past and would like to try another round of physical therapy. Medication Injected: Med Injected: Procedure is lumbar epidural steroid injection under local anesthetic using sterile prep and drape at the L4-5 level using C-arm fluoroscopic guidance in both AP and lateral views medications injected is 120 mg Depo-Medrol + 10 mL preservative-free normal saline and 2 mL contrast- condition at discharge is stable patient tolerated procedure well had no complications. Condition at Discharge: Condition at Discharge: Condition at discharge is stable, patient tolerated the procedure well and had no complications. YANN ANN MD Aug 30, 2020 10:52
== END | disposition home or self-care (01) ==
LOC: PNCL 09:52
PROVIDERS: ATTEND Anesthesiology
DX: M51.16 Intervertebral disc disorders with radiculopathy, lumbar region (principal); M96.1 Postlaminectomy syndrome, not elsewhere classified; I10 Essential (primary) hypertension; E78.00 Pure hypercholesterolemia, unspecified; K21.9 Gastro-esophageal reflux disease without esophagitis; I48.91 Unspecified atrial fibrillation; M19.90 Unspecified osteoarthritis, unspecified site; Z79.899 Other long term (current) drug therapy; Z72.89 Other problems related to lifestyle; Z98.890 Other specified postprocedural states; Z88.5 Allergy status to narcotic agent
CPT/HCPCS: 62323; J1030; J1040; Q9965

== ENCOUNTER → 2020-10-19 | Outpatient (CLI) | payer MEDICARE, OTHER ==
[2019-06-22 10:30] VITALS: BP 153/90
[~2020-10-19] MED LIST changes: -IOHEXOL 180 MG/ML 10 ML VIAL. ONE; -methylPREDNISolone ACETATE 40 MG/ML VIAL. ONE; -methylPREDNISolone ACETATE 80 MG/ML VIAL. ONE
--- NOTE | 2020-10-19 09:30 | KCIC ---
EXAM: Pelvis and left hip, 2 views. HISTORY: Pain. COMPARISON: None. FINDINGS: A frontal view the pelvis and frog-leg view of the left hip are obtained. There is left hip joint space narrowing with degenerative subchondral sclerosis and marginal femoral head. There are s purring. There is instrumented fusion and laminectomy decompression at the lower lumbar levels. There are incidental vasectomy clips. IMPRESSION: 1. Moderate left hip osteoarthritis. 2. Postoperative change involving the lower lumbar spine. Electronically signed by: Alesia Hall MD (10/19/2020 9:27 AM) [id number]
--- NOTE | 2020-10-19 10:30 | KCIC ---
MRI of the lumbar spine without contrast CLINICAL HISTORY: Low back pain which radiates down the left leg for 6 months. History of previous jose mbar spine surgery. TECHNIQUE: Unenhanced T1-weighted and T2-weighted sagittal and axial and inversion recovery sagittal images of the lumbar spine were obtained. FINDINGS: Comparison is made to a CT lumbar myelogram dated 06/22/2019. Very mild S-shaped curvature of the thoracolumbar spine is seen. The patient is post laminectomy and fusion at L5-S1 using pedicle screws, stabilizing rods and bone graft material. Very mild anterolisth esis of L5 in relation to S1 is noted. Degenerative signal changes are seen involving all of the disk s of the lumbar spine. Degenerative signal changes are seen within the marrow surrounding these discs . A 2.5 cm hemangioma is seen involving the L3 vertebral body. The conus medullaris is normal morphol ogy, position, and signal characteristics. The L1-2, L2-3 and L3-4 disc spaces there are minimal to mild generalized disc bulges. Degenerative c hanges are seen involving the facet joints bilaterally. There is mild ligamentum flavum hypertrophy b ilaterally. These findings when combined do not result in significant central spinal canal or neural foraminal stenosis. At the L4-5 disc space there is a mild generalized disc bulge. Degenerative changes are seen involvin g the facet joints bilaterally. There is mild ligamentum flavum hypertrophy bilaterally. These findin gs do not result in significant central spinal canal or neural foraminal stenosis. At the L5-S1 disc space a left paracentral posterior vertebral body osteophyte formation is seen whic h measures 5 mm in AP diameter. Degenerative changes are seen involving the facet joints bilaterally. These findings do not result in significant central spinal canal stenosis. Mild to moderate left gre ater than right neural foraminal stenosis is seen. IMPRESSION: 1. Post laminectomy and fusion at L5-S1. 2. The changes of degenerative disc disease are seen throughout the lumbar spine. These findings do n ot result in significant central spinal canal stenosis at any level. Mild to moderate left greater th an right neural foraminal stenosis is seen at L5-S1. Electronically signed by: Nj Alberts MD (10/19/2020 10:28 AM) [id number]
== END ==
LOC: KCIC MRI 08:23
PROVIDERS: ATTEND Nurse Practitioner Gerontology
DX: M51.37 Other intervertebral disc degeneration, lumbosacral region (principal); M48.07 Spinal stenosis, lumbosacral region; M16.12 Unilateral primary osteoarthritis, left hip
CPT/HCPCS: 72148; 73501

== ENCOUNTER → 2020-10-26 | Outpatient (CLI) | payer MEDICARE, OTHER ==
[2019-06-22 10:30] VITALS: BP 153/90
[~2020-10-26] MED LIST changes: +BUPIVACAINE MPF 0.5% 10 ML VIAL. IJ ONE; +IOHEXOL 300 MG/ML 50 ML VIAL. INT ART ONE; +LIDOCAINE 1% Multi-Dose 20 ML VIAL. ID ONE; +methylPREDNISolone ACETATE 40 MG/ML VIAL. INT ART ONE
--- NOTE | 2020-10-26 11:57 | KCIC ---
Examination: Fluoro Guided Therapeutic injection left hip. History: Left hip pain COMPARISON: None available Findings: Relative benefits risks and alternatives to the procedure were discussed and verbal and written infor med consent was obtained. The patient was carefully prepped and draped in a sterile fashion. Lidoca ine was used for local anesthesia. A 22-gauge spinal needle was advanced to the level of the hip patrick nt at the femoral neck. 4 mL of lidocaine, 4 mL of Omnipaque 300, 40 ml Bupivacaine, 80 mg of Depo-Me drol. Digital image was obtained showing contrast in the joint. Impression: Therapeutic injection left hip. Total fluoroscopic image 1. 18 seconds of fluoroscopy was used for the procedure. Electronically signed by: Ayo Murguia MD (10/26/2020 11:54 AM) [id number]
== END | disposition home or self-care (01) ==
LOC: KCIC 10:02
PROVIDERS: ATTEND Nurse Practitioner Gerontology
DX: M16.12 Unilateral primary osteoarthritis, left hip (principal); G89.29 Other chronic pain; M25.552 Pain in left hip; E78.00 Pure hypercholesterolemia, unspecified; I48.91 Unspecified atrial fibrillation; I10 Essential (primary) hypertension; K21.9 Gastro-esophageal reflux disease without esophagitis; Z79.899 Other long term (current) drug therapy; Z98.890 Other specified postprocedural states; Z88.5 Allergy status to narcotic agent; Z82.49 Family history of ischemic heart disease and other diseases of the circulatory system
CPT/HCPCS: 20610; 77002; J1030; J3490; Q9967

== ENCOUNTER → 2020-12-02 | Outpatient (CLI) | payer MEDICARE, OTHER ==
[2019-06-22 10:30] VITALS: BP 153/90
[~2020-12-02] MED LIST changes: -BUPIVACAINE MPF 0.5% 10 ML VIAL. IJ ONE; -IOHEXOL 300 MG/ML 50 ML VIAL. INT ART ONE; -LIDOCAINE 1% Multi-Dose 20 ML VIAL. ID ONE; -methylPREDNISolone ACETATE 40 MG/ML VIAL. INT ART ONE
--- NOTE | 2020-12-02 10:38 | KCIC ---
EXAM: CT bone length scanogram. HISTORY: Leg length discrepancy. COMPARISON: None. FINDINGS: A veterinary assistant image of the lower extremities and pelvis was obtained. There is a right knee arthr oplasty. There is instrumented posterior spinal fusion with disc space fusion device placement and la minectomy decompression at the lumbosacral junction. There is left hip joint space narrowing with deg enerative subchondral sclerosis, spurring and bony remodeling. The right lower extremity measures 90. 1 cm from the superior articular aspect of the femoral head to the medial tibial plafond. The left lo wer extremity measures 91.1 cm from the superior articular aspect of the femoral head to the medial t ibial plafond. IMPRESSION: 1. Bilateral lower extremity leg length measurements for operative planning, described above. 2. Moderate left hip osteoarthritis. 3. Right knee arthroplasty and post operative change involving the lumbosacral junction. Electronically signed by: Alesia Hall MD (12/02/2020 10:35 AM) [id number]
== END ==
LOC: KCIC CT 09:56
PROVIDERS: ATTEND Orthopaedic Surgery
DX: M21.70 Unequal limb length (acquired), unspecified site (principal); M16.12 Unilateral primary osteoarthritis, left hip; Z96.651 Presence of right artificial knee joint
CPT/HCPCS: 77073

== ENCOUNTER → 2021-01-17 | Outpatient (CLI) | payer MEDICARE, OTHER ==
[2019-06-22 10:30] VITALS: BP 153/90
[~2021-01-17] MED LIST changes: +ACET325T9 PO; +ASPI-630 PO
[2021-01-17 11:03] LABS: BASO % 1 % (0-3); EOS # 0.1 x10^3/uL (0.0-0.7); EOS % 2 % (0-3); HEMATOCRIT 43.6 % (39.0-53.0); HEMOGLOBIN 15.4 g/dL (13.0-17.5); LYMPH # 0.7 x10^3/uL (1.0-4.8); LYMPH % 12 % (24-48); MEAN CORPUSCULAR HEMOGLOBIN 33 pg (25-35); MEAN CORPUSCULAR HGB CONC 35 g/dL (31-37); MEAN CORPUSCULAR VOLUME 93 fL (79-100); MONO # 0.5 x10^3/uL (0.0-1.1); MONO % 8 % (0-9); NEUT # 4.8 x10^3/uL (1.8-7.7); NEUT % 78 % (31-73); PLATELET COUNT 164 x10^3/uL (140-400); RED BLOOD COUNT 4.68 x10^6/uL (4.30-5.70); RED CELL DISTRIBUTION WIDTH 13.1 % (11.5-14.5); WHITE BLOOD COUNT 6.2 x10^3/uL (4.0-11.0)
[2021-01-17 11:05] LABS: PROTHROMBIN TIME PATIENT 12.4 SEC (11.7-14.0)
[2021-01-17 11:09] LABS: ALBUMIN 4.2 g/dL (3.4-5.0); CALCIUM 9.5 mg/dL (8.5-10.1); CREATININE 1.1 mg/dL (0.7-1.3); GFR 66.6; POTASSIUM 4.3 mmol/L (3.5-5.1)
--- NOTE | 2021-01-17 12:10 | RAD ---
EXAM: Chest, 2 views. HISTORY: Preoperative evaluation. COMPARISON: 01/06/2019 FINDINGS: 2 views of the chest are obtained. There is no infiltrate, pleural effusion or pneumothorax . The heart is normal in size. IMPRESSION: No acute pulmonary finding. Electronically signed by: Alesia Hall MD (01/17/2021 12:08 PM) [id number]
[2021-01-18 05:58] LABS: HEMOGLOBIN A1C 6.1 % (4.8-5.6)
== END ==
LOC: SURGPAT 10:24
PROVIDERS: ATTEND Orthopaedic Surgery
DX: Z01.818 Encounter for other preprocedural examination (principal); M16.12 Unilateral primary osteoarthritis, left hip; R94.31 Abnormal electrocardiogram [ECG] [EKG]; Z96.652 Presence of left artificial knee joint
CPT/HCPCS: 36415; 71046; 80048; 82040; 82306; 83036; 85025; 85610; 85651; 85730; 87641